=== PATIENT | female | born 1960 | race Caucasian/White ===

== ENCOUNTER 2017-03-09 09:11 | Emergency (ER) | payer MEDICAID ==
[~2017-03-09] VITALS: Ht 157.5 cm; Wt 77.1 kg
[~2017-03-09 09:11] MED LIST: ALBUPOW26; AMLO5TAB2 PO; FAMO-12; HYDROXAZINE; TRAZEDONE; [UNRECOGNIZED DRUG - CODE]
[2017-03-09 09:19] VITALS: BP 105/70
== END 2017-03-09 09:55 | disposition home or self-care (01) ==
LOC: ER 09:11
DX: K64.1 Second degree hemorrhoids (principal); E11.9 Type 2 diabetes mellitus without complications; K21.9 Gastro-esophageal reflux disease without esophagitis; F17.210 Nicotine dependence, cigarettes, uncomplicated; F12.10 Cannabis abuse, uncomplicated; Z90.710 Acquired absence of both cervix and uterus; Z90.89 Acquired absence of other organs; Z88.6 Allergy status to analgesic agent